=== PATIENT | male | born 1970 | race Caucasian/White ===

== ENCOUNTER 2023-02-13 22:19 | Emergency (ER) | payer SELFPAY ==
[2023-02-13 22:34] VITALS: BP 146/80; PULSE 70; RESP 18; TEMP 36.6; O2SAT 99
[2023-02-14] MEDS: FLUORESCEIN SOD 1 MG/STRIP EACH EYE (03:37)
[2023-02-14] MEDS: TETRACAINE HCL 0.5% OPHTH SOLN 4 ML BTL 1 DROP EACH EYE (03:37)
--- NOTE | 2023-02-14 03:44 | ED.GENADULT ---
HPI - General Adult General Chief complaint: Eye Problems Stated complaint: right eye pain, needs drug test for work Time Seen by Provider: 02/14/23 03:02 History of Present Illness HPI narrative: 52-year-old male presenting ED with right eye pain. Patient says he was walking through a parking lot when he felt something blown into his eye. Since then he has had pain and foreign body sensation. He is also requesting a drug test for work. Related Data Allergies Allergy/AdvReac Type Severity Reaction Status Date / Time No Known Allergies Allergy Verified 02/13/23 22:20 Exam Narrative: APPEARANCE: No apparent distress. Head: atraumatic. EYES: Patient has conjunctival injection on the right, patient has area of Small area fluorescein uptake over the lower portion of the cornea around 6:00. no Kathie sign intra-ocular pressures 12. NOSE: Atraumatic NECK: Trachea midline RESPIRATORY: No increased rate of breathing CARDIOVASCULAR: RRR, ABDOMINAL: Non-distended MUSCULOSKELETAl: No obvious deformities NEURO: Alert. Moving 4/4 extremities SKIN:: Warm, dry. Normal color PSYCHIATRIC: Normal affect Course Vital Signs Vital signs: Vital Signs Temperature 97.9 F 02/13/23 22:34 Pulse Rate 70 02/13/23 22:34 Respiratory Rate 18 02/13/23 22:34 Blood Pressure 146/80 H 02/13/23 22:34 Pulse Oximetry 99 02/13/23 22:34 Oxygen Delivery Room Air 02/13/23 22:34 Temperature 97.9 F 02/13/23 22:34 Pulse Rate 70 02/13/23 22:34 Respiratory Rate 18 02/13/23 22:34 Blood Pressure 146/80 H 02/13/23 22:34 Pulse Oximetry 99 02/13/23 22:34 Oxygen Delivery Room Air 02/13/23 22:34 Medical Decision Making [facility] Narrative Medical decision making narrative: -Presentation: 52-year-old male presenting with pain foreign body sensation in his right eye. Fluorescein exam revealed a corneal abrasion. No evidence of foreign bodies at this time. Patient is also requesting a drug test. 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 IOP normal. Dx tests considered but not ordered: None -Procedures: slit-lamp exam -Interventions: tetracaine eyedrops -Shared decision making / Disposition: patient has corneal abrasions right eye. He will be discharged with Ocuflox eyedrops and close Ophthalmology follow-up. -RX Ofloxacin otic Vital Signs Vital Signs: Vital Signs Temperature 97.9 F 02/13/23 22:34 Pulse Rate 70 02/13/23 22:34 Respiratory Rate 18 02/13/23 22:34 Blood Pressure 146/80 H 02/13/23 22:34 Pulse Oximetry 99 02/13/23 22:34 Oxygen Delivery Room Air 02/13/23 22:34 Temperature 97.9 F 02/13/23 22:34 Pulse Rate 70 02/13/23 22:34 Respiratory Rate 18 02/13/23 22:34 Blood Pressure 146/80 H 02/13/23 22:34 Pulse Oximetry 99 02/13/23 22:34 Oxygen Delivery Room Air 02/13/23 22:34 Discharge Plan Discharge Clinical Impression: Corneal abrasion Patient Disposition: Home, Self-Care Condition: Stable Instructions: Antibiotic Form, Corneal Abrasion (DC) Additional Instructions: He was seen for a corneal abrasion. Please follow-up with [facility] at [phone] or [facility] Op[facility]mology at [phone] in the next 24-48 hours. Please use ofloxacin eyedrops as directed. Use Motrin Tylenol for pain control. Prescriptions: New ofloxacin 0.3 % drops See Rx Instructions .ROUTE .COMPLEX Qty: 10 0RF Rx Instructions: put 1-2 drps into affected eye(s) every 2-4 h x 2 days, then 1-2 drps 4 times/day days 3-7 ibuprofen 800 mg tablet 800 mg PO
[2023-02-14] MEDS: ACETAMINOPHEN 500 MG TABLET 1000 MG PO (04:03)
[2023-02-14] MEDS: IBUPROFEN 400 MG TABLET 800 MG PO (04:04)
[2023-02-14 04:17] VITALS: BP 138/79; PULSE 69; RESP 18; TEMP 36.6; O2SAT 99
[2023-02-14 05:21] LABS: Amphetamine Screen Urine Negative (Negative); Barbiturate Screen Urine Negative (Negative); Benzodiazepines Screen Urine Negative (Negative); Cannabinoid Screen Urine Negative (Negative); Cocaine Screen Urine Negative (Negative); Methadone Screen Urine Negative (Negative); Opiate Screen Urine Negative (Negative); Phencyclidine Screen Urine Negative (Negative)
== END 2023-02-14 04:18 | disposition home or self-care (01) ==
LOC: ANHED 02-14 04:05
PROVIDERS: Emergency Provider Emergency Medicine
DX: S05.01XA Injury of conjunctiva and corneal abrasion without foreign body, right eye, initial encounter (principal); W20.8XXA Other cause of strike by thrown, projected or falling object, initial encounter
CPT/HCPCS: 80307; 99283; A9270